=== PATIENT | female | born 2000 | race Caucasian/White ===

== ENCOUNTER 2019-01-19 08:50 | Inpatient (IN) | payer OTHER ==
[~2019-01-19] VITALS: Ht 165.1 cm; Wt 39.5 kg
[2019-01-19 09:14] VITALS: BP 112/73; PULSE 84; RESP 18; Ht 165.1 cm; Wt 39.5 kg
[2019-01-19] MEDS ORDERED: PNV11TAB PO (09:16)
[2019-01-19] MEDS ORDERED: BUTORPHANOL 2 MG INJ IV PRN ×2 (09:30)
[2019-01-19] MEDS ORDERED: OXYTOCIN 30 UNITS/LR 500 ML IV SCH ×4 (09:30→10:00)
[2019-01-19] MEDS ORDERED: OXYTOCIN 30 UNITS/LR 500 ML IV PRN ×2 (09:30→21:00)
[2019-01-19] MEDS ORDERED: CARBOPROST 250 MCG INJ IM PRN ×2 (09:30→21:00)
[2019-01-19] MEDS ORDERED: LIDOCAINE 1% (MPF) 30 ML INJ INJ PRN (09:30)
[2019-01-19] MEDS ORDERED: MISOPROSTOL 200 MCG TAB PR PRN ×2 (09:30→21:00)
[2019-01-19] MEDS ORDERED: METHYLERGONOVINE 0.2 MG INJ IM PRN ×2 (09:30→21:00)
[2019-01-19] MEDS: LACTATED RINGER'S 1,000 ML IV SCH ×3 (09:37→16:09)
[2019-01-19] MEDS ORDERED: IBUPROFEN 600 MG TAB PO PRN (10:00)
--- NOTE | 2019-01-19 14:07 | PREAC ---
Date/Time of Note Date/Time of Note DATE: 01/19/19 TIME: 14:07 Anesthesia Eval and Record Evaluation Time Pre-Procedure Interview DATE: 01/19/19 TIME: 14:07 Age 18 Sex female NPO: 8 hrs Preoperative diagnosis Planned procedure labor epidural Past Medical History Past Medical History: Includes GI: Other (low weight) Surgery & Anesthesia Issues No known issue Meds Anticoagulation: No Beta Sharon within 24 hr: No Reason Beta Sharon not given: Pt. not on B-Sharon Reported Medications [id number] ( 19) 1 Each Tablet, 1 TAB PO DAILY, TAB 01/19/19 Current Medications Lactated Ringer's 1,000 ml @ 125 mls/hr Q8H IV Last administered on 01/19/19at 09:37; Admin Dose 125 MLS/HR; Start 01/19/19 at 09:22 Butorphanol Tartrate (Stadol) 1 mg Q2H PRN IV PAIN; Start 01/19/19 at 09:30 Butorphanol Tartrate (Stadol) 2 mg Q2H PRN IV .PAIN; Start 01/19/19 at 09:30 Lidocaine (Xylocaine 1% (Mpf)) 30 ml ONCE PRN INJ .EPISIOTOMY; Start 01/19/19 at 09:30 Oxytocin/Lactated Ringer's 500 ml @ 500 mls/hr ONCE POST IV ; Start 01/19/19 at 09:30 Oxytocin/Lactated Ringer's 500 ml @ 125 mls/hr POST IV ; Start 01/19/19 at 09:30 Oxytocin/Lactated Ringer's 500 ml @ 0 mls/hr ONCE PRN IV .VAGINAL BLEEDING; Start 01/19/19 at 09:30 Methylergonovine Maleate (Methergine) 0.2 mg ONCE PRN IM .VAGINAL BLEEDING; Start 01/19/19 at 09:30 Carboprost Tromethamine (Hemabate) 250 mcg ONCE PRN IM .VAGINAL BLEEDING; Start 01/19/19 at 09:30 Misoprostol (Cytotec) 1,000 mcg ONCE PRN VT .VAGINAL BLEEDING; Start 01/19/19 at 09:30 Oxytocin/Lactated Ringer's 500 ml @ 0 mls/hr FOR AUGMENTATION IV Last admi nistered on 01/19/19at 10:16; Admin Dose 2 MLS/HR; Start 01/19/19 at 09:30 Ibuprofen (Motrin) 600 mg ONCE PRN PO .PAIN 1-5; Start 01/19/19 at 10:00 Oxytocin/Lactated Ringer's 500 ml @ 0 mls/hr FOR AUGMENTATION IV ; Start 01/19/19 at 10:00 Meds reviewed: Yes Allergies Coded Allergies: No Known Allergy (Unverified , 01/19/19) Allergies Reviewed: Yes Labs/Studies Labs Reviewed: Reviewed by anesthesiologist Result Diagram: 01/19/19 0940 Laboratory Tests 01/19/19 09:40 Blood Bank Test 01/19/19 09:40 Antibody Screen NEGATIVE Blood Type A POSITIVE Rh Immune Globulin Candidate NO test: Positive Pre-procedure Exam Last vitals Vital Signs Date Temp Pulse Resp B/P (MAP) Pulse Ox O2 O2 Flow FiO2 Time Delivery Rate 01/19/19 97.7 84 18 112/73 09:14 (86) Airway: Adequate mouth opening, Adequate thyromental dist Mallampati: Mallampati II Teeth: Normal Lung: Normal Heart: Normal ASA Physical Status ASA physical status: 2 Emergency: None Planned Anesthetic Neuraxial: Epidural Pre-operative Attestations Prior to commencing anesthesia and surgery, the patient was re-evaluated, there was verification of: *The patient's identity *The results of appropriate recent lab work and preoperative vital signs *The above evaluation not changing prior to induction *Anesthetic plan, risk benefits, alternative and complications discussed with patient/family; questions answered; patient/family understands, accepts and wishes to proceed. JASON ARMENDARIZ January 19, 2019 14:07
[2019-01-19] MEDS ORDERED: KETOROLAC 30 MG INJ IV PRN (14:30)
[2019-01-19] MEDS ORDERED: NALOXONE (0.4 MG/ML) INJ IV PRN (14:30)
[2019-01-19] MEDS ORDERED: DIPHENHYDRAMINE 50 MG INJ IV PRN ×2 (14:30→21:00)
[2019-01-19] MEDS ORDERED: HYDROmorphONE 0.5 MG/0.5 ML SYG IV PRN ×2 (14:30)
[2019-01-19] MEDS ORDERED: FENTAnyl 2MCG/ML-ROPIV 0.2% 100 ML BAG EPI SCH (14:30)
[2019-01-19] MEDS ORDERED: ONDANSETRON 4 MG INJ IV PRN ×2 (14:30→21:00)
--- NOTE | 2019-01-19 16:24 | HP ---
Date/Time of Note Date/Time of Note DATE: 01/19/19 TIME: 16:19 OB - History Hx of Present Free Text/Dictation 18 years old 1 with single intrauterine at 39 weeks and 5 days with NICHOL of 01/21/2019 complaining of uterine contractions she states good movement. She denies nausea, vomiting, shortness of breath, chest pain, headache, visual changes, vaginal bleeding or LOF. Chief Complaint: Contractions Estimated Due Date: January 21, 2019 : 1 Care: Good Care Ultrasounds: Normal mid trimester US Obstetrical Complications: None Medical Complications: None Past Family/Social History * Past Medical, Surgical, Family and Obstetric Histories reviewed from chart. Blood Type: A+ Rubella: immune RPR/VDRL: Negative GBS Status: Negative HBsAG: Negative OB Admission Exam Vital Signs Vital Signs Vital Signs Date Temp Pulse Resp B/P (MAP) Pulse Ox O2 O2 Flow FiO2 Time Delivery Rate 01/19/19 97.7 84 18 112/73 09:14 (86) Physical Exam HEENT: WNL Heart: Rhythm Normal Lungs: Clear Abdomen: WNL Extremities: Normal Cervical Dilatation: 2cm Effacement: 75% Station: -2 Membranes: Intact Heart Rate: 130's Accelerations: Accelerations Present Decelerations: No Decelerations Varibility: Moderate Contractions on Admission: < 5 Minutes Apart Intensity: Moderate Last 72 hours Lab Results CBC & BMP 01/19/19 09:40 OB Assessment/Plan Other plan: 18 years old 1 with single intrauterine at 39 weeks and 5 days in labor - FHR: No sign of metabolic acidosis- Category I - Continuous EFM, toco - CBC, blood type and screen - Analgesia options with R/B/A discussed in detail with patient - Epidural per patient request - Please see the orders - A+/Rubella: Immune - GBS: Negative Admission, procedures, expectations, risks and possible complications have been discussed in detail with the patient. Risk of vaginal delivery including but not limited to bleeding, infection, cervical laceration, placental retention, injury to fetus, blood transfusion, blood transfusion related infection, risk of anesthesia, adhesion, cervical laceration, episiotomy/laceration, possible delivery with risk of bleeding, infection, injury to other organs (bowel, bladder, ureter, vessels, nerves), injury to fetus, blood transfusion, blood transfusion related infection, risk of anesthesia, scar and hernia formation, needs for future , removal of uterus or any other indicated surgery discussed with the patient. She expressed understanding and repeats the risks. All of her questions were answered. She signed the informed consent. PHYSICIAN'S VERIFICATION OF INFORMED CONSENT The patient was counseled regarding the procedure, its indications, risks, potential complications and alternatives and any questions were answered. Consent was obtained. PLANNED PROCEDURE/TREATMENT: Vaginal delivery, episiotomy, repair of laceration possible delivery MONI PRADHAN January 19, 2019 16:24
--- NOTE | 2019-01-19 19:24 | LDN ---
Date/Time of Note Date/Time of Note DATE: 01/19/19 TIME: 19:21 Delivery Summary 18 years old 1 with single intrauterine at 39 weeks and 5 days delivered a viable female over median episiotomy at 18:36. Nose and mouth suctioned. Rest of body delivered. Baby given to the nurse. Cord clamped and cut after stopping pulsation. Placenta delivered intact spontaneously with three-vessel cord. Episiotomy repaired with 2-0 and 3-0 Vicryl. Patient tolerated procedure well. Weight 7 pounds 8 ounces - 3390 g 9 at 1 minutes and 9 at 5 minutes EBL 150 mm L Weeks of Gestation 39 weeks and 5 days Placenta Delivered: Spontaneously Meconium: none Episiotomy: Yes (Median episiotomy) Anesthesia type: Epidural Estimated blood loss: 150 Sponge & Needle done & correct: Yes All needle counts correct: Yes Delivery Information Sex Infant Sex: female Apgars 1 Minute: 9 5 Minute: 9 10 Minute: 10 Suctioning Nose & mouth suctioned at agusto: Yes Umbilical Cord Umbilical cord with: 3 Vessels Cord presentations: no nuchal cord Cord Blood was obtained: Yes Mother & Baby Disposition Disposition Mom & Baby to Maternity; Good: Yes MONI PRADHAN January 19, 2019 19:24
[2019-01-19] MEDS ORDERED: MAGNESIUM HYDROXIDE 30ML CUP PO PRN (19:30)
[2019-01-19 20:20] VITALS: BP 112/69; PULSE 89; RESP 16
[2019-01-19] MEDS: DEXTROSE 5%-LR 1,000 ML IV SCH (20:35)
[2019-01-19 20:50] VITALS: BP 105/56; PULSE 92
[2019-01-19] MEDS ORDERED: BENZOCAINE 20% 56 ML SPRAY TOP PRN (21:00)
[2019-01-19] MEDS ORDERED: OXYCODONE/ASPIRIN (4.88/325) TAB PO PRN (21:00)
[2019-01-19] MEDS ORDERED: DIBUCAINE 1% 30 GM OINT TOP PRN (21:00)
[2019-01-19] MEDS ORDERED: ACETAMINOPHEN 325 MG TAB PO PRN (21:00)
[2019-01-19] MEDS ORDERED: LANOLIN HPA 1 PKT TOP PRN (21:00)
[2019-01-19] MEDS ORDERED: ZOLPIDEM 5 MG TAB PO PRN (21:00)
[2019-01-19] MEDS ORDERED: WITCH HAZEL/GLYCERIN PAD PR PRN (21:00)
[2019-01-19] MEDS ORDERED: SENNA/DOCUSATE NA (8.6MG/50MG) TAB PO PRN (21:00)
--- NOTE | 2019-01-19 22:02 | PAC ---
Date/Time of Note Date/Time of Note DATE: 01/19/19 TIME: 22:01 Post-Anesthesia Notes Post-Anesthesia Note Last documented vital signs Vital Signs Date Temp Pulse Resp B/P (MAP) Pulse Ox O2 O2 Flow FiO2 Time Delivery Rate 01/19/19 97.7 84 18 112/73 09:14 (86) Activity: WNL Respiratory function: WNL Cardiovascular function: WNL Mental status: Baseline Pain reasonably controlled: Yes Hydration appropriate: Yes Nausea/Vomiting absent: Yes JASON ARMENDARIZ January 19, 2019 22:01
[2019-01-19] MEDS: LACTATED RINGER'S 1,000 ML IV* SCH (23:03)
[2019-01-19] MEDS: IBUPROFEN 600 MG TAB PO SCH (23:34)
[2019-01-20] VITALS: BP 104/67; PULSE 92; RESP 18
[2019-01-20 04:26] VITALS: BP 105/55; PULSE 80; RESP 18
[2019-01-20] MEDS: DEXTROSE 5%-LR 1,000 ML IV SCH ×3 (04:35→20:35)
[2019-01-20] MEDS: LACTATED RINGER'S 1,000 ML IV* SCH ×3 (04:35→20:35)
[2019-01-20] MEDS: IBUPROFEN 600 MG TAB PO SCH ×3 (05:41→18:01)
[2019-01-20 08:30] VITALS: BP 102/52; PULSE 76; RESP 16
--- NOTE | 2019-01-20 12:24 | PN ---
Date/Time of Note Date/Time of Note DATE: 01/20/19 TIME: 12:22 OB Subjective Subjective Subjective Breast-feeding. Reports decreased vaginal bleeding. Urinated. Denies any complaint. Ambulating without any symptoms. OB Objective Objective Objective General appearance: Alert and oriented x4 does not appear to be in any acute distress Abdomen: Soft, fundus firm palpable nontender at the level of umbilicus Extremities: No calf tenderness, no click no edema no cord palpable Breast: No evidence of mastitis or fissure VS - Last 72 Hours, by Label Date Temp Pulse Resp B/P (MAP) Pulse Ox O2 O2 Flow FiO2 Time Delivery Rate 01/20/19 98.2 76 16 102/52 Room Air 08:30 (69) 01/20/19 98.7 80 18 105/55 Room Air 04:26 (72) 01/20/19 98.7 92 18 104/67 Room Air 00:00 (79) 01/19/19 98.6 92 105/56 20:50 (72) 01/19/19 99.0 89 16 112/69 Room Air 20:20 (83) 01/19/19 97.7 84 18 112/73 09:14 (86) CBC & BMP 01/19/19 09:40 01/20/19 08:07 OB Assessment/Plan Other Assessment: Status post day #1 Doing well Mild anemia, , asymptomatic Routine care Anticipate DC home tomorrow ROLAN BARNES MD January 20, 2019 12:24
[2019-01-20 12:28] VITALS: BP 104/51; PULSE 74; RESP 16
[2019-01-20 16:42] VITALS: BP 137/80; PULSE 87; RESP 12
[2019-01-20 19:55] VITALS: BP 108/63; PULSE 72; RESP 18
[2019-01-21] MEDS: IBUPROFEN 600 MG TAB PO SCH ×3 (00:06→11:34)
[2019-01-21 04:35] VITALS: BP 103/59; PULSE 79; RESP 18
[2019-01-21] MEDS: DEXTROSE 5%-LR 1,000 ML IV SCH ×2 (04:35→12:35)
[2019-01-21] MEDS: LACTATED RINGER'S 1,000 ML IV* SCH ×2 (04:35→12:35)
[2019-01-21 08:30] VITALS: BP 113/64; PULSE 82; RESP 18
[2019-01-21] MEDS ORDERED: MEASLES,MUMPS,RUBELLA VACCINE INJ SC* ONE (09:00)
[2019-01-21] MEDS ORDERED: DIPHTH/TET/ACEL PERTUSS (ADULT) 0.5 ML VIAL IM* ONE (09:00)
--- NOTE | 2019-01-21 18:35 | PD.PPDC ---
[employer] Discharge Instruction Diagnosis [id number] Final Diagnosis: Czlvh7g s/p Condition Iyucr8Vl Patient Condition: Uadvl9g Stable Diet Mbpel7Lu Diet: Patok8a Resume Regular Diet Activity/Restrictions [id number] Activity: Vybre1t May Shower Pcopd8Ey Restrictions: [id number] No Lifting No Sexual Activity Nothing in the Vagina No [place] No Tampons, douche Follow-up Follow-up with Physician: 2, Week/Weeks Return to clinic for [id number] HIRED HAND Instructions: Vpwec8y Fever greater than 101 Worsening abdominal pain Excessive Vaginal Bleeding More than 2 pads per hour Unable to tolerate diet CHAPARRITA CAMACHO MD January 21, 2019 18:35
--- NOTE | 2019-01-21 18:36 | DS ---
Date/Time of Note Date/Time of Note DATE: 01/21/19 TIME: 18:35 Obstetrical Discharge Record Final Diagnosis Final Diagnosis: Term delivered Vaginal Delivery Obstetrical Delivery: Spontaneous, Episiotomy, Repaired Complications Augmentation: Yes Induction: No Condition on Discharge Physical Assessment Last Vitals: vss afebrile Voiding: Yes Bowel Movement: Yes Breast: Soft, non-tender Fundus: Firm Episiotomy: ok Calf Tenderness: No Patient Condition: Stable CHAPARRITA CAMACHO MD January 21, 2019 18:36
--- NOTE | 2019-01-22 16:53 | DELSUM ---
Delivery Summary A-C Datetime Report Generated by CPN: 01/22/2019 16:53 DELIVERY PERSONNEL Epic Prelude Analyst: Stephanie Pak MATERNAL INFORMATION Delivery Anesthesia: Epidural Medications in Delivery: LR WITH 30 UNITS PITOCIN Delivery QBL (ml): 200 Placenta Cultured: No Maternal Complications: None Other Maternal Complications: IN LABOR LABOR SUMMARY EDC: 01/21/2019 00:00 No. Babies in Womb: 1 Attempted: No Labor Anesthesia: Epidural LABOR INFORMATION Reason for Induction: Not Applicable Onset of Labor: 01/19/2019 09:01 Complete Dilatation: 01/19/2019 18:06 Oxytocin: Augmentation Group B Beta Strep: Negative Antibiotics # of Doses: 0 Steroids Given: None Reason Steroids Not Administered: Not Applicable MEMBRANES Membranes Rupture Method: Artificial Rupture of Membranes: 01/19/2019 16:49 Length of Rupture (hr): 1.78 Amniotic Fluid Color: Clear Amniotic Fluid Amount: Large Amniotic Fluid Odor: Normal STAGES OF LABOR Stage 1 hr: 9 Stage 1 min: 5 Stage 2 hr: 0 Stage 2 min: 30 Stage 3 hr: 0 Stage 3 min: 1 Total Time in Labor hr: 9 Total Time in Labor min: 36 VAGINAL DELIVERY Episiotomy: Median Laceration Extension: N/A Laceration Type: None Laceration Repair: No Initial Vag Sponge Count: 10 Final Vag Sponge Count: 10 Initial Vag Sharps Count: 2 Final Vag Sharps Count: 2 Sponge Count Correct: Yes Sharps Count Correct: Yes BABY A INFORMATION Delivery Date/Time: 01/19/2019 18:36 Method of Delivery: Vaginal Born in Route : No : N/A Forceps: N/A Vacuum Extraction: N/A Shoulder Dystocia : N/A SHOULDER DYSTOCIA BABY A Delivery Date/Time: 01/19/2019 18:36 PRESENTATION/POSITION BABY A Presentation: Cephalic Cephalic Presentation: Vertex Vertex Position: Left Occipital Anterior Breech Presentation: N/A PLACENTA INFORMATION BABY A Placenta Delivery Time : 01/19/2019 18:37 Placenta Method of Delivery: Spontaneous Placenta Status: Delivered SCORES BABY A Heart Rate 1 min: >100 bpm Resp Effort 1 min: Good Cry Reflex Irritability 1 min: Cough/Sneeze/Pulls Away Muscle Tone 1 min: Active Motion Color 1 min: Body [place], Extremit Blue Resuscitation Effort 1 min: Tactile Stimulation SCORE 1 MIN: 9 Heart Rate 5 min: >100 bpm Resp Effort 5 min: Good Cry Reflex Irritability 5 min: Cough/Sneeze/Pulls Away Muscle Tone 5 min: Active Motion Color 5 min: Body [place], Extremit Blue Resuscitation Effort 5 min: Tactile Stimulation SCORE 5 MIN: 9 INFORMATION BABY A Gestational Age at Delivery: 39.5 Gestational Status: Full Term- 39- 40.6 Weeks Infant Outcome : Liveborn Infant Condition : Stable Sex: Female IDENTIFICATION/MEDS BABY A ID Band Number: [id number] ID Band Location: Right Leg; Left Arm Sensor Applied: Yes Sensor Number: [id number] Sensor Location : Cord Clamp Vitamin K Given : Not Given Erythromycin Given: Not Given WEIGHT/LENGTH BABY A Infant Birthweight (gm): 3390 Weight (lb): 7 Weight (oz): 8 Infant Length (in): 19.50 Length (cm): 49.53 CORD INFORMATION BABY A No. Cord Vessels: 3 Nuchal Cord : N/A Cord Blood Taken: Yes Suction: Mouth; Nose ASSESSMENT BABY A Infant Complications: None Physical Findings at Delivery: Within Normal Limits Respirations: Appears Normal Engineering And Scientific Programmer/ALS Called : No Transferred To: Remains with Mother
== END 2019-01-21 15:55 | disposition home or self-care (01) | DRG 807 ==
LOC: OBT 08:50 → L-D 08:50 → OBT 09:26 → PP1 20:22
PROVIDERS: ADMIT Obstetrics & Gynecology; ATTEND Obstetrics & Gynecology
PROC: 10E0XZZ Delivery of Products of Conception, External Approach (ICD-10-PCS; principal; 2019-01-19)
PROC: 0W8NXZZ Division of Female Perineum, External Approach (ICD-10-PCS; 2019-01-19)
DX: O80 Encounter for full-term uncomplicated delivery (principal); Z37.0 Single live birth; O90.81 Anemia of the puerperium; D64.9 Anemia, unspecified; Z3A.39 39 weeks gestation of pregnancy; Z23 Encounter for immunization
CPT/HCPCS: 62322; 85025; 85610; 85730; 86592; 86850; 86900; 86901; 87340; 90715; G0463; J2590; J3010; J7120; J7121